=== PATIENT | female | born 1930 | race African-American/Black ===

== ENCOUNTER 2018-09-28 11:52 | Emergency (ER) | payer MEDICARE, MEDICAID ==
[~2018-09-28] VITALS: Ht 157.5 cm; Wt 102.0 kg
[2018-09-28] MEDS ORDERED: ACETAMINOPHEN 325MG TABLET PO STA (12:42)
[2018-09-28 14:06] LABS: CLARITY URINE CLEAR (CLEAR); COLOR URINE YELLOW (YELLOW); KETONES URINE NEGATIVE (NEGATIVE); LEUKOCYTE ESTERASE URINE 3+ (NEGATIVE); NITRITE URINE NEGATIVE (NEGATIVE); OCCULT BLOOD URINE NEGATIVE (NEGATIVE); PH URINE 6.5 (4.5-8.0); PROTEIN URINE NEGATIVE (NEGATIVE); SPECIFIC GRAVITY URINE 1.008 (1.005-1.030); UROBILINOGEN URINE 0.2 E.U./dL (0.2-1.0)
[2018-09-28 14:14] LABS: BASOPHILS % 0.4 % (0.0-2.0); EOSINOPHILS % 3.3 % (0.0-5.0); HEMOGLOBIN. 10.8 g/dL (12.0-16.0); LYMPHOCYTES % 36.6 % (20.0-50.0); MEAN CORPUSCULAR HEMOGLOBIN 30.1 pg (28.0-32.0); MEAN CORPUSCULAR VOLUME 91.8 fL (81.0-99.0); MEAN PLATELET VOLUME 6.9 fl (7.4-10.4); MONOCYTES % 6.8 % (2.0-8.0); NEUTROPHILS % 52.9 % (40.0-76.0); PLATELET 267 x1000/uL (130-400); RED CELL DISTRIBUTION WIDTH 14.5 % (11.6-14.6)
[2018-09-28] MEDS ORDERED: LIDOCAINE HCL 1% 20ML VIAL (Pyxis) INJ INFIL ONE (14:15)
[2018-09-28] MEDS ORDERED: CEFTRIAXONE SODIUM 1 G/VIAL IM ONE (14:15)
[2018-09-28 14:25] LABS: CHLORIDE 107 mEq/L (98-107)
[2018-09-28 15:26] VITALS: BP 141/67
== END 2018-09-28 15:27 | disposition home or self-care (01) ==
LOC: ER 11:52
DX: S62.522A Displaced fracture of distal phalanx of left thumb, initial encounter for closed fracture (principal); S09.8XXA Other specified injuries of head, initial encounter; N39.0 Urinary tract infection, site not specified; E86.0 Dehydration; E11.9 Type 2 diabetes mellitus without complications; I10 Essential (primary) hypertension; E78.00 Pure hypercholesterolemia, unspecified; Z96.659 Presence of unspecified artificial knee joint; W01.190A Fall on same level from slipping, tripping and stumbling with subsequent striking against furniture, initial encounter; Y93.89 Activity, other specified; Y92.091 Bathroom in other non-institutional residence as the place of occurrence of the external cause; Y99.8 Other external cause status
CPT/HCPCS: 29125; 36415; 70450; 73140; 80053; 81003; 84484; 85025; 87086; 93005; 96372; 99284; J0696; J3490

== ENCOUNTER 2019-02-09 08:09 | Inpatient (IN) | payer MEDICARE, MEDICAID ==
[~2019-02-09] VITALS: Ht 160 cm; Wt 99.8 kg
[2019-02-09] MEDS ORDERED: ALBUTEROL (0.083%) 2.5MG/3ML NEB HHN STA (09:19)
[2019-02-09 09:40] LABS: BASOPHILS % 0.4 % (0.0-2.0); EOSINOPHILS % 1.4 % (0.0-5.0); HEMOGLOBIN. 10.9 g/dL (12.0-16.0); LYMPHOCYTES % 35.8 % (20.0-50.0); MEAN CORPUSCULAR HEMOGLOBIN 30.7 pg (28.0-32.0); MEAN CORPUSCULAR VOLUME 93.3 fL (81.0-99.0); MEAN PLATELET VOLUME 6.5 fl (7.4-10.4); MONOCYTES % 7.1 % (2.0-8.0); NEUTROPHILS % 55.3 % (40.0-76.0); PLATELET 302 x1000/uL (130-400); RED BLOOD CELL COUNT 3.54 mill/uL (4.2-5.4)
[2019-02-09 09:45] LABS: CHLORIDE 112 mEq/L (98-107)
[2019-02-09] MEDS ORDERED: ENOXAPARIN 100MG/ML SYR SUBCUT ONE (11:15)
[2019-02-09] MEDS ORDERED: NITROGLYCERIN 0.4MG TABLET SL SL PRN (11:15)
[2019-02-09] MEDS ORDERED: FUROSEMIDE 40MG/4ML VIAL IV ONE (11:15)
[2019-02-09] MEDS ORDERED: ASPIRIN 81MG TABLET PO ONE (11:15)
[2019-02-09 12:05] LABS: CLARITY URINE CLOUDY (CLEAR); COLOR URINE YELLOW (YELLOW); KETONES URINE NEGATIVE (NEGATIVE); LEUKOCYTE ESTERASE URINE 3+ (NEGATIVE); NITRITE URINE NEGATIVE (NEGATIVE); OCCULT BLOOD URINE TRACE (NEGATIVE); PH URINE 5.5 (4.5-8.0); PROTEIN URINE 1+ (NEGATIVE); SPECIFIC GRAVITY URINE 1.014 (1.005-1.030); UROBILINOGEN URINE 0.2 E.U./dL (0.2-1.0)
[2019-02-09] MEDS ORDERED: SODIUM CHLORIDE 0.9% 500 ML IV ONE (12:30)
[2019-02-09] MEDS ORDERED: ERGO2000 PO (14:39)
[2019-02-09] MEDS ORDERED: ATOR40TA70 PO (14:39)
[2019-02-09] MEDS ORDERED: INSU100I33 SQ (14:39)
[2019-02-09] MEDS ORDERED: IBUP-2030 PO (14:39)
[2019-02-09] MEDS ORDERED: GABA-531 PO (14:39)
[2019-02-09] MEDS ORDERED: ASPI-1393 PO (14:39)
[2019-02-09] MEDS ORDERED: LOSA1TAB40 PO (14:39)
[2019-02-09] MEDS ORDERED: ACETAMINOPHEN 325MG TABLET PO PRN (15:45)
[2019-02-09] MEDS ORDERED: DEXTROSE 50% WATER 50ML SYRINGE IV PRN (15:45)
[2019-02-09] MEDS ORDERED: IPRATROPIUM/ALBUTEROL 0.5-3(2.5)MG/3ML NEB HHN PRN (15:45)
[2019-02-09 16:20] VITALS: BP 111/65
[2019-02-09 16:51] VITALS: BP 108/47
[2019-02-09] MEDS: LOSARTAN POTASSIUM 25 MG TABLET PO SCH (17:00)
[2019-02-09] MEDS: BLOOD SUGAR DIAGNOSTIC STRIP TEST SCH ×2 (17:40→21:41)
[2019-02-09] MEDS: INSULIN LISPRO 100 UNITS/ML SUBCUT SCH ×2 (18:10→21:43)
[2019-02-09] MEDS: CEFTRIAXONE 1 G PREMIX 50 ML IV SCH (19:01)
[2019-02-09] MEDS: ENOXAPARIN 40MG/0.4ML SYR SUBCUT SCH (19:02)
[2019-02-09] MEDS: DOCUSATE SODIUM 250MG CAPSULE PO SCH (19:02)
[2019-02-09 20:00] VITALS: BP 104/57
[2019-02-09] MEDS ORDERED: LEVOFLOXACIN 500MG PREMIX 100 ML IV SCH (20:00)
[2019-02-09] MEDS ORDERED: ENOXAPARIN 40MG/0.4ML SYR SUBCUT SCH (21:00)
[2019-02-09] MEDS: GABAPENTIN 300MG CAPSULE PO SCH (21:14)
[2019-02-09] MEDS: GUAIFENESIN-DM 200MG-20MG/10ML UDC PO PRN (21:14)
[2019-02-09] MEDS: ATORVASTATIN CALCIUM 40MG TABLET PO SCH (21:14)
[2019-02-10] VITALS: BP 101/46
[2019-02-10] MEDS: IPRATROPIUM/ALBUTEROL 0.5-3(2.5)MG/3ML NEB HHN SCH ×4 (00:55→20:35)
[2019-02-10 04:00] VITALS: BP 104/52
[2019-02-10] MEDS: BLOOD SUGAR DIAGNOSTIC STRIP TEST SCH ×4 (06:41→22:00)
[2019-02-10 07:57] VITALS: BP 113/57
[2019-02-10] MEDS: INSULIN LISPRO 100 UNITS/ML SUBCUT SCH ×4 (08:10→22:11)
[2019-02-10] MEDS: ASPIRIN 81MG TABLET PO SCH (08:42)
[2019-02-10] MEDS: LOSARTAN POTASSIUM 25 MG TABLET PO SCH (08:42)
[2019-02-10] MEDS: DOCUSATE SODIUM 250MG CAPSULE PO SCH (08:42)
[2019-02-10 10:13] LABS: EOSINOPHILS % 1.9 % (0.0-5.0); HEMATOCRIT. 32.6 % (36.0-48.0); HEMOGLOBIN. 10.7 g/dL (12.0-16.0); LYMPHOCYTES % 34.7 % (20.0-50.0); MEAN CORPUSCULAR HEMOGLOBIN 30.9 pg (28.0-32.0); MEAN CORPUSCULAR VOLUME 93.8 fL (81.0-99.0); MEAN PLATELET VOLUME 6.8 fl (7.4-10.4); MONOCYTES % 5.6 % (2.0-8.0); NEUTROPHILS % 56.8 % (40.0-76.0); PLATELET 315 x1000/uL (130-400); RED BLOOD CELL COUNT 3.47 mill/uL (4.2-5.4); RED CELL DISTRIBUTION WIDTH 13.8 % (11.6-14.6)
[2019-02-10 10:28] LABS: PHOSPHORUS 3.2 mg/dL (2.5-4.9)
[2019-02-10 12:00] VITALS: BP 118/51
[2019-02-10 16:00] VITALS: BP 119/52
[2019-02-10] MEDS: CEFTRIAXONE 1 G PREMIX 50 ML IV SCH (18:04)
[2019-02-10] MEDS: ENOXAPARIN 40MG/0.4ML SYR SUBCUT SCH (18:07)
[2019-02-10 20:00] VITALS: BP 110/45
[2019-02-10] MEDS: LEVOFLOXACIN 250MG PREMIX 50 ML IV SCH (22:00)
[2019-02-10] MEDS: GABAPENTIN 300MG CAPSULE PO SCH (22:00)
[2019-02-10] MEDS: ATORVASTATIN CALCIUM 40MG TABLET PO SCH (22:00)
[2019-02-10] MEDS: GUAIFENESIN-DM 200MG-20MG/10ML UDC PO PRN (22:21)
[2019-02-11] VITALS: BP 115/60
[2019-02-11] MEDS: IPRATROPIUM/ALBUTEROL 0.5-3(2.5)MG/3ML NEB HHN SCH ×4 (02:11→20:07)
[2019-02-11 04:00] VITALS: BP 105/48
[2019-02-11] MEDS: BLOOD SUGAR DIAGNOSTIC STRIP TEST SCH ×4 (06:13→21:03)
[2019-02-11 07:26] LABS: BASOPHILS % 0.4 % (0.0-2.0); EOSINOPHILS % 1.9 % (0.0-5.0); HEMOGLOBIN. 10.1 g/dL (12.0-16.0); LYMPHOCYTES % 36.5 % (20.0-50.0); MEAN CORPUSCULAR HEMOGLOBIN 30.5 pg (28.0-32.0); MEAN CORPUSCULAR VOLUME 93.2 fL (81.0-99.0); MEAN PLATELET VOLUME 6.9 fl (7.4-10.4); MONOCYTES % 6.3 % (2.0-8.0); NEUTROPHILS % 54.9 % (40.0-76.0); PLATELET 298 x1000/uL (130-400); RED BLOOD CELL COUNT 3.33 mill/uL (4.2-5.4)
[2019-02-11 07:45] VITALS: BP 103/45
[2019-02-11] MEDS: ASPIRIN 81MG TABLET PO SCH (08:36)
[2019-02-11] MEDS: INSULIN LISPRO 100 UNITS/ML SUBCUT SCH ×4 (08:36→21:10)
[2019-02-11] MEDS: DOCUSATE SODIUM 250MG CAPSULE PO SCH (08:36)
[2019-02-11] MEDS: LOSARTAN POTASSIUM 25 MG TABLET PO SCH (08:37)
[2019-02-11 12:03] VITALS: BP 117/57
[2019-02-11 16:00] VITALS: BP 120/62
[2019-02-11] MEDS: ENOXAPARIN 40MG/0.4ML SYR SUBCUT SCH (18:03)
[2019-02-11] MEDS: CEFTRIAXONE 1 G PREMIX 50 ML IV SCH (18:03)
[2019-02-11 20:00] VITALS: BP 147/53
[2019-02-11] MEDS: GUAIFENESIN-DM 200MG-20MG/10ML UDC PO PRN (21:10)
[2019-02-11] MEDS: ATORVASTATIN CALCIUM 40MG TABLET PO SCH (21:10)
[2019-02-11] MEDS: GABAPENTIN 300MG CAPSULE PO SCH (21:10)
[2019-02-11] MEDS: LEVOFLOXACIN 250MG PREMIX 50 ML IV SCH (21:11)
[2019-02-12] VITALS: BP 107/56
[2019-02-12] MEDS: IPRATROPIUM/ALBUTEROL 0.5-3(2.5)MG/3ML NEB HHN SCH ×4 (02:52→20:05)
[2019-02-12 04:00] VITALS: BP 129/54
[2019-02-12] MEDS: BLOOD SUGAR DIAGNOSTIC STRIP TEST SCH ×3 (04:57→18:38)
[2019-02-12 08:00] VITALS: BP 101/43
[2019-02-12] MEDS: LOSARTAN POTASSIUM 25 MG TABLET PO SCH (09:00)
[2019-02-12] MEDS: DOCUSATE SODIUM 250MG CAPSULE PO SCH (10:05)
[2019-02-12] MEDS: ASPIRIN 81MG TABLET PO SCH (10:05)
[2019-02-12] MEDS: INSULIN LISPRO 100 UNITS/ML SUBCUT SCH ×3 (10:06→18:54)
[2019-02-12] MEDS: GUAIFENESIN-DM 200MG-20MG/10ML UDC PO PRN (11:24)
[2019-02-12 12:00] VITALS: BP 115/44
[2019-02-12 16:00] VITALS: BP 112/46
[2019-02-12] MEDS: ENOXAPARIN 40MG/0.4ML SYR SUBCUT SCH (18:55)
[2019-02-12 19:15] LABS: HEMATOCRIT 29.6 % (36.0-48.0); MEAN CORPUSCULAR HEMOGLOBIN 31.4 pg (28.0-32.0); MEAN CORPUSCULAR VOLUME 92.8 fL (81.0-99.0); PLATELET 292 x1000/uL (130-400); RED BLOOD CELL COUNT 3.19 mill/uL (4.2-5.4); RED CELL DISTRIBUTION WIDTH 13.8 % (11.6-14.6)
[2019-02-12 19:39] VITALS: BP 117/47
[2019-02-12] MEDS ORDERED: MONTELUKAST SODIUM 10MG TABLET PO SCH (20:00)
[2019-02-13] MEDS ORDERED: LEVOFLOXACIN 250MG TABLET PO SCH (11:00)
== END 2019-02-12 20:20 | disposition home health service (06) | DRG 871 ==
LOC: ER 08:09 → 7WST 11:13 → EDBEDREQ 11:16 → EDBEDREQTM 11:16 → ENRESERV 11:55
PROVIDERS: ADMIT Internal Medicine; ATTEND Internal Medicine
DX: A41.9 Sepsis, unspecified organism (principal); I21.4 Non-ST elevation (NSTEMI) myocardial infarction; J18.9 Pneumonia, unspecified organism; N39.0 Urinary tract infection, site not specified; J98.11 Atelectasis; M47.9 Spondylosis, unspecified; M54.5 Low back pain; I34.8 Other nonrheumatic mitral valve disorders; N18.2 Chronic kidney disease, stage 2 (mild); J20.9 Acute bronchitis, unspecified; E86.9 Volume depletion, unspecified; I12.9 Hypertensive chronic kidney disease with stage 1 through stage 4 chronic kidney disease, or unspecified chronic kidney disease; E04.9 Nontoxic goiter, unspecified; E66.9 Obesity, unspecified; E10.22 Type 1 diabetes mellitus with diabetic chronic kidney disease; Z96.659 Presence of unspecified artificial knee joint; M17.0 Bilateral primary osteoarthritis of knee; I25.10 Atherosclerotic heart disease of native coronary artery without angina pectoris; H91.90 Unspecified hearing loss, unspecified ear; E86.0 Dehydration; E10.65 Type 1 diabetes mellitus with hyperglycemia; Z68.39 Body mass index [BMI] 39.0-39.9, adult; Z79.82 Long term (current) use of aspirin; Z79.899 Other long term (current) drug therapy
CPT/HCPCS: 36415; 71045; 71250; 80048; 80061; 82962; 83036; 83735; 83880; 84100; 84484; 85027; 85651; 87070; 93005; 93306; 93970; 94640; 96374; 97162; 97166; 99285; J0696; J1650; J1815; J1940; J1956; J7040; J7611; J7620